=== PATIENT | male | born 1970 | race Two or more races ===

== ENCOUNTER 2017-01-23 17:19 | Emergency (ER) | payer OTHER ==
[~2017-01-23] VITALS: Ht 157.5 cm; Wt 68.0 kg
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
[2017-01-23] MEDS ORDERED: TYLENOL325 MG ORAL (17:57)
[2017-01-23 18:08] VITALS: BP 118/83
[2017-01-23 18:31] VITALS: BP 118/83
== END 2017-01-23 18:33 ==
LOC: EMR 18:00
DX: S20.212A Contusion of left front wall of thorax, initial encounter (principal); S80.02XA Contusion of left knee, initial encounter; Y04.2XXA Assault by strike against or bumped into by another person, initial encounter; Y92.512 Supermarket, store or market as the place of occurrence of the external cause
CPT/HCPCS: 99283